=== PATIENT | female | born 1980 | race Caucasian/White ===

== ENCOUNTER 2016-03-16 12:54 | Inpatient (IN) | payer OTHER ==
[2016-03-21] VITALS (7 sets, daily range): BP systolic 128–154; BP diastolic 81–99; PULSE 82–110; RESP 18–20; TEMP 97.6–98.4; O2SAT 94–99
[2016-03-21] MEDS: LACTATED RINGER'S 1000 ML INJ 1,000 ML IV SCH (13:04)
[2016-03-21] MEDS ORDERED: OXYTOCIN 10 UNIT/ML AMP ONE (16:28)
[2016-03-21] MEDS ORDERED: ceFAZolin INJ 1,000 MG VIAL ONE (16:28)
[2016-03-21] MEDS ORDERED: LACTATED RINGER'S 1000 ML IV ONE (16:30)
[2016-03-21] MEDS ORDERED: CITRIC ACID-SODIUM CITRATE LIQ 30 ML UDC PO SCH (16:30)
[2016-03-21 16:38] LABS: AUTOMATED NEUTROPHIL # 5.9 TH/MM3 (1.8-7.7); BASOPHIL # 0.1 TH/MM3 (0-0.2); BASOPHIL % 1.4 % (0.0-2.0); EOSINOPHIL # 0.1 TH/MM3 (0-0.4); EOSINOPHIL % 0.6 % (0.0-4.0); HEMATOCRIT 34.9 % (35.0-46.0); HEMO FLAGS DIFF FINAL; LYMPH % 23.8 % (9.0-44.0); LYMPHOCYTE # 2.2 TH/MM3 (1.0-4.8); MEAN CELL VOLUME 78.5 FL (80.0-100.0); MEAN CORPUSCULAR HEMOGLOBIN 26.3 PG (27.0-34.0); MEAN CORPUSCULAR HGB CONC 33.5 % (32.0-36.0); MONO % 8.6 % (0.0-8.0); NEUT % 65.6 % (16.0-70.0); PLATELET COUNT 201 TH/MM3 (150-450); RED BLOOD COUNT 4.44 MIL/MM3 (4.00-5.30); RED CELL DISTRIBUTION WIDTH 16.9 % (11.6-17.2); WHITE BLOOD COUNT 9.1 TH/MM3 (4.0-11.0)
[2016-03-21] MEDS ORDERED: EPIDURAL-DIPHENHYDRAMINE HCL 50 MG CAP PO PRN (16:45)
[2016-03-21] MEDS ORDERED: EPIDURAL-DO NOT ADMINISTER ANTICOAGULANTS XX PRN (16:45)
[2016-03-21] MEDS ORDERED: ceFAZolin 2 GM PREMIX 50 ML IV SCH (16:45)
[2016-03-21] MEDS ORDERED: EPIDURAL-NO SYSTEMIC NARCOTICS XX PRN (16:45)
[2016-03-21] MEDS ORDERED: EPIDURAL-NALOXONE HCL 0.4 MG/ML AMP IV PRN (16:45)
[2016-03-21] MEDS ORDERED: LACTATED RINGER'S 1000 ML IV SCH (17:00)
[2016-03-21 17:02] LABS: APTT (PATIENT) 25.2 SEC (24.3-30.1); INTERNATIONAL NORMALIZED RATIO 0.9 RATIO; PROTHROMBIN TIME - PATIENT 9.4 SEC (9.8-11.6)
[2016-03-21] MEDS ORDERED: ACETAMINOPHEN 1000 MG/100 ML VIAL IV ONE (17:57)
[2016-03-21] MEDS ORDERED: SODIUM CHLORIDE 0.9% FLUSH 5 ML FLUSH IV PRN (18:00)
[2016-03-21] MEDS ORDERED: MEASLES, MUMPS, RUBELLA VACCINE 0.5 ML VIAL SQ ONE (18:00)
[2016-03-21] MEDS ORDERED: OXYTOCIN 30 UNITS-500ML PREMIX 500 ML IV ONE (18:00)
[2016-03-21] MEDS: ONDANSETRON HCL 4 MG/2 ML VIAL IVP PRN (18:00)
[2016-03-21] MEDS ORDERED: PHENYLEPHRINE HCL 10 MG/ML VIAL IV ONE (18:00)
[2016-03-21] MEDS ORDERED: ZOLPIDEM TARTRATE 5 MG TAB PO PRN (18:00)
[2016-03-21] MEDS ORDERED: MORPHINE SULFATE PF 5 MG/10 ML VIAL ONE (18:02)
[2016-03-21] MEDS ORDERED: OXYTOCIN 30 UNITS-500ML PREMIX 500 ML IV PRN (18:15)
--- NOTE | 2016-03-21 18:19 | MH ---
cc: JUMA LI DATE OF ADMISSION 03/21/2016 ADMISSION DIAGNOSIS at 36-37 weeks with acute bleeding secondary to anterior placenta previa, advanced maternal age 35. HISTORY OF PRESENT ILLNESS The patient is a 35-year-old white female para 0 with an EDC of 04/15/16 by early ultrasound. Her labs were normal. First TM screen and panorama testing were normal. Her blood type was positive. The placenta previa was diagnosed in the mid trimester and continued as an anterior previa. She had episode of bleeding around Thanksgiving, was given steroid therapy and did well. She was at work today and about 03:30 p.m. had acute onset of right red blood per vagina with large clot and was brought in by [facility]. She is now admitted for immediate delivery. PAST MEDICAL HISTORY Previous surgery in 2013 appendectomy. MEDICATIONS Vitamins. ALLERGIES None TRANSFUSIONS None. SOCIAL HISTORY She is . She works at [employer]. Alcohol, tobacco and drugs are none. FAMILY HISTORY Noncontributory. PHYSICAL EXAMINATION GENERAL: A gravid white female. VITAL SIGNS: Stable. HEENT: Exam is normal. CHEST: Clear HEART: Regular rate. BREASTS: Enlarged with ABDOMEN: Gravid, nontender. PELVIC: Exam of the perineum reveals copious blood per vagina. ASSESSMENT As above PLAN She is now admitted for immediate section. I have explained the need for surgery which has been explained before and she understands. I also explained that should she have excessive bleeding postdelivery, she could require a hysterectomy. She would like to proceed. MD SYLWIA Hoskins/ /5:53 PM /6:04 PM
[2016-03-21] MEDS ORDERED: KETOROLAC TROMETHAMINE 30 MG/ML (IVP) VIAL ONE (18:23)
[2016-03-21] MEDS: KETOROLAC TROMETHAMINE 30 MG/ML (IVP) VIAL IV PUSH PRN (18:24)
[2016-03-21] MEDS ORDERED: OXYTOCIN 30 UNITS-500ML PREMIX 500 ML ONE (18:27)
[2016-03-22] VITALS: BP_SYST 154; BP_DIAS 98; BP_DIAS 99; PULSE 96; RESP 18; TEMP 98; O2SAT 96
[2016-03-22] MEDS: ONDANSETRON HCL 4 MG/2 ML VIAL IVP PRN (00:02)
[2016-03-22] MEDS: KETOROLAC TROMETHAMINE 30 MG/ML (IVP) VIAL IV PUSH PRN ×3 (00:03→13:39)
[2016-03-22] MEDS ORDERED: METOPROLOL TARTRATE 100 MG TAB PO SCH ×2 (01:00→09:00)
[2016-03-22] MEDS: EPIDURAL-DIPHENHYDRAMINE HCL 50 MG/ML VIAL IV PUSH PRN ×3 (01:10→08:14)
[2016-03-22] MEDS ORDERED: NIFEdipine 20 MG CAP PO ONE (02:00)
--- NOTE | 2016-03-22 02:16 | HHI.OB ---
Subjective Post Operative Day: 1 Remarks Asked to evaluate patient due to increased blood pressures: Patient is status post section due to possible previa, current blood pressure is 154/98, 154/99. Patient denies headaches, blurry vision, visual disturbances and epigastric pain. No signs and symptoms of preeclampsia at this time. Pain is well controlled, patient is sleeping comfortably, SCDs and both legs, Mast catheter in place. Objective Vitals/I&O Vital signs are stable, vital signs are reviewed Vital Signs Date Time Temp Pulse Resp B/P Pulse Ox O2 Delivery O2 Flow Rate FiO2 03/22/16 00:00 154/99 03/22/16 00:00 98.0 96 18 154/98 96 03/21/16 21:15 97.8 98 18 154/99 98 03/21/16 18:55 99 20 141/81 99 03/21/16 18:39 20 94 03/21/16 18:39 82 128/87 03/21/16 18:16 147/89 03/21/16 18:16 84 20 03/21/16 18:04 110 145/86 03/21/16 18:04 97.6 20 94 03/21/16 16:30 98.4 18 03/21/16 16:24 106 138/93 Result Diagram: 03/21/16 1610 Objective Remarks GENERAL: Well-nourished, well-developed patient. CARDIOVASCULAR: Regular rate and rhythm without murmurs, gallops, or rubs. RESPIRATORY: Breath sounds equal bilaterally. No accessory muscle use. ABDOMEN/GI: Abdomen soft, appropriately tender, bowel sounds present, no guarding, no rebound Incision: Clean, dry and intact, dressing in place Fundus: Firm, non-tender at umbilicus. GENITOURINARY: Light to moderate bleeding. Mast catheter in place EXTREMITIES: No cyanosis or edema, non-tender, SCDs in place, no signs of DVT. Medications and IVs Current Medications Medications (Trade) Dose Ordered Sig/Craig Route Start Time Stop Time Status Last Admin Lactated Ringer's 1,000 ml @ 150 mls/hr Q6H40M IV 03/21/16 17:00 (Lr 1000 ml Inj) 1,000 ml @ 100 mls/hr Q10H IV 03/21/16 13:04 03/22/16 09:03 03/21/16 13:04 (NS Flush) 2 ml BID IV 03/21/16 21:00 (NS Flush) 2 ml UNSCH PRN IV 03/21/16 18:00 (Mylicon Chew) 80 mg QID PRN PO 03/21/16 18:00 (Ofirmev Inj) 1,000 mg Q8H IV 03/22/16 02:00 03/22/16 10:01 (Motrin) 600 mg Q6H PRN PO 03/21/16 18:00 (Percocet 5-325 Mg) 1 tab Q4H PRN PO 03/21/16 18:00 Oxycodone/ Acetaminophen 2 tab 2 tab Q4H PRN PO 03/21/16 18:00 (Ancef Inj/NS Inj) 100 ml @ 200 mls/hr Q8H IV 03/22/16 00:00 03/22/16 08:29 03/22/16 00:02 (Diamond-Colace) 2 tab Q12H PRN PO 03/21/16 18:00 (Ambien) 5 mg HS PRN PO 03/21/16 18:00 (Boostrix Inj) 0.5 ml ONCE ONCE IM 03/23/16 09:00 03/23/16 09:01 (Zofran Inj) 4 mg Q6H PRN IVP 03/21/16 18:00 03/22/16 00:02 (Toradol Inj) 30 mg Q6HR PRN IV PUSH 03/21/16 18:00 03/24/16 17:00 03/22/16 00:03 Miscellaneous Information NO SYSTEMIC NARCOTICS TO BE GIVEN FO... UNSCH PRN XX 03/21/16 16:45 03/22/16 16:44 (Narcan Inj) 0.4 mg UNSCH PRN IV 03/21/16 16:45 03/22/16 16:44 (Benadryl Inj) 25 mg Q6H PRN IV PUSH 03/21/16 16:45 03/22/16 16:44 (Benadryl) 50 mg Q6H PRN PO 03/21/16 16:45 03/22/16 16:44 Miscellaneous Information ALL NURSING DEPARTMENTS UNSCH PRN XX 03/21/16 16:45 03/22/16 16:44 (Trandate) 300 mg Q12H PO 03/22/16 06:00 Assessment/Plan Assessment and Plan Post op day 1, status post cesareans delivery due to possible placenta previa, patient is hemodynamically stable. Patient with increased blood pressures, rule out preeclampsia. 1. Increased blood pressures/rule out preeclampsia. * Patient is currently asymptomatic, denies headache, blurry vision, epigastric pain. * Will treat blood pressure with labetalol 300 mg by mouth twice a day * We will continue to monitor blood pressures more frequently * Watch for signs and symptoms of preeclampsia * Will start magnesium sulfate for seizure prophylaxis and transferred to labor and delivery if patient is symptomatic * We'll send preeclamptic labs * Consider protein creatinine ratio 2. Status post delivery * Routine care * Pain management * Encourage incentive spirometer use * Encourage ambulation in the a.m. Discharge Planning 2- 3 days after delivery Héctor Choi MD Mar 22, 2016 02:16
[2016-03-22] MEDS: LACTATED RINGER'S 1000 ML INJ 1,000 ML IV SCH (02:40)
[2016-03-22] MEDS: SODIUM CHLORIDE 0.9% FLUSH 5 ML FLUSH IV SCH ×2 (02:40)
[2016-03-22] MEDS: ACETAMINOPHEN 1000 MG/100 ML VIAL IV SCH ×2 (02:40→09:24)
[2016-03-22 02:44] LABS: BASOPHIL # 0.1 TH/MM3 (0-0.2); BASOPHIL % 0.6 % (0.0-2.0); EOSINOPHIL % 0.1 % (0.0-4.0); HEMATOCRIT 30.6 % (35.0-46.0); HEMO FLAGS DIFF FINAL; LYMPH % 9.8 % (9.0-44.0); LYMPHOCYTE # 1.3 TH/MM3 (1.0-4.8); MEAN CELL VOLUME 79.3 FL (80.0-100.0); MEAN CORPUSCULAR HEMOGLOBIN 26.8 PG (27.0-34.0); MEAN CORPUSCULAR HGB CONC 33.8 % (32.0-36.0); MONO % 7.3 % (0.0-8.0); NEUT % 82.2 % (16.0-70.0); PLATELET COUNT 176 TH/MM3 (150-450); RED BLOOD COUNT 3.86 MIL/MM3 (4.00-5.30); RED CELL DISTRIBUTION WIDTH 16.9 % (11.6-17.2); WHITE BLOOD COUNT 13.3 TH/MM3 (4.0-11.0)
[2016-03-22 03:09] LABS: AMPHETAMINE, URINE NEG (NEG); BARBITURATES, URINE NEG (NEG); COCAINE, URINE NEG (NEG)
[2016-03-22 03:11] LABS: BLOOD, URINE TRACE (NEG); GLUCOSE,URINE 150 mg/dL (NEG); KETONE, URINE 40 mg/dL (NEG); MUCUS URINE MANY /lpf (OCC); NITRITE,URINE NEG (NEG); PH, URINE 6.5 (5.0-8.5); RENAL EPITHELIAL CELLS <1 /hpf; SQUAMOUS EPITHELIAL CELL URINE <1 /hpf (0-5); URINE COLOR YELLOW (YELLW/STRAW)
[2016-03-22 03:14] LABS: COMMENT (UR) CATH-CULT NOT IND; CULTURE IF INDICATED CATH CULTURE NOT IND
[2016-03-22 03:23] LABS: ALT (GPT) 12 U/L (10-53); ANION GAP 10 MEQ/L (5-15); AST (GOT) 12 U/L (15-37); BICARBONATE 23.3 MEQ/L (21.0-32.0); BLOOD UREA NITROGEN 12 MG/DL (7-18); CHLORIDE 105 MEQ/L (98-107); POTASSIUM 4.5 MEQ/L (3.5-5.1); SODIUM (NA) 138 MEQ/L (136-145); URIC ACID 3.4 MG/DL (2.6-6.0)
[2016-03-22 03:28] LABS: ALKALINE PHOSPHATASE 83 U/L (45-117); GLOMERULAR FILTRATION RATE 133 ML/MIN (>89); LDH SERUM 270 U/L (84-246); TOTAL BILIRUBIN ADULT 0.2 MG/DL (0.2-1.0)
[2016-03-22 04:00] VITALS: BP 143/92; PULSE 110; RESP 18; O2SAT 99
[2016-03-22 06:00] VITALS: BP 113/82; PULSE 95; RESP 18
[2016-03-22] MEDS: LABETALOL HCL 300 MG TAB PO SCH ×2 (06:03→18:03)
[2016-03-22] MEDS: oxyCODONE/ACETAMINOPHEN 5 MG/325 MG TAB PO PRN ×2 (17:37→21:38)
[2016-03-22] MEDS: SIMETHICONE 80 MG CHEWABLE TAB PO PRN (18:09)
[2016-03-22] MEDS: DOCUSATE SODIUM 50 MG/SENNA 8.6 MG TAB PO PRN (18:09)
[2016-03-22 20:00] VITALS: BP 133/75; PULSE 108; RESP 18; TEMP 98.7
[2016-03-22] MEDS: IBUPROFEN 600 MG TAB PO PRN (21:38)
[2016-03-23] MEDS: IBUPROFEN 600 MG TAB PO PRN ×3 (03:51→18:39)
[2016-03-23] MEDS: oxyCODONE/ACETAMINOPHEN 5 MG/325 MG TAB PO PRN ×5 (03:51→20:21)
[2016-03-23] MEDS: DOCUSATE SODIUM 50 MG/SENNA 8.6 MG TAB PO PRN ×2 (07:45→20:23)
[2016-03-23 08:00] VITALS: BP 108/72; PULSE 88; RESP 18; TEMP 98.4
[2016-03-23] MEDS ORDERED: DIPHTH/TETANUS/ACEL PERTUSSIS (BOOSTER) 0.5 ML VIAL/PFS IM ONE (09:00)
[2016-03-23] MEDS ORDERED: INFLUENZA VIRUS VACCINE (QUADRIVALENT) 0.5 ML SYR IM ONE (10:00)
[2016-03-23 16:00] VITALS: BP 112/77; PULSE 84; RESP 16; TEMP 98.8
[2016-03-23] MEDS: LABETALOL HCL 300 MG TAB PO SCH (18:39)
[2016-03-23] MEDS: SIMETHICONE 80 MG CHEWABLE TAB PO PRN (18:39)
[2016-03-24] MEDS: SIMETHICONE 80 MG CHEWABLE TAB PO PRN ×2 (00:23→06:14)
[2016-03-24] MEDS: IBUPROFEN 600 MG TAB PO PRN ×2 (00:23→08:17)
[2016-03-24] MEDS: oxyCODONE/ACETAMINOPHEN 5 MG/325 MG TAB PO PRN ×2 (00:23→04:40)
[2016-03-24 04:00] VITALS: BP 130/93; PULSE 106; RESP 18; TEMP 99.2
[2016-03-24] MEDS: LABETALOL HCL 300 MG TAB PO SCH (04:57)
[2016-03-24 08:00] VITALS: BP 117/79; PULSE 87; RESP 18; TEMP 98.1
--- NOTE | 2016-03-24 08:06 | HHI.DCPOC ---
Discharge Care Plan Diagnosis: (1) Placenta previa antepartum in second trimester (2) Delivered by section Report Symptoms to Your Doctor -Temperate above 100.5 degrees -Redness, of incision or excessive or foul smelling drainage -Unusual pain or calf pain -Increased vaginal bleeding -Painful or difficulty urinating -Feelings of extreme sadness or anxiety after 2 weeks Goals to Promote Your Health * To prevent worsening of your condition and complications * To maintain your health at the optimal level Directions to Meet Your Goals Take your medications as prescribed Follow your dietary instruction Follow activity as directed Ensure plenty of rest for recovery Drink fluids for hydration Keep your appointments as scheduled Take your immunizations and boosters as scheduled If your symptoms worsen call your PCP, if no PCP go to Urgent Care Center or Emergency Room Smoking is Dangerous to Your Health. Avoid second hand smoke Call the 24-hour crisis hotline for domestic abuse at Dipesh Abreu MD Mar 24, 2016 08:06
[2016-03-24] MEDS ORDERED: OXYC1TAB63 PO (08:07)
--- NOTE | 2016-03-24 08:08 | HHI.OB ---
Subjective Post Day: 2 Remarks doing well dc home Objective Vitals/I&O Vital Signs Date Time Temp Pulse Resp B/P Pulse Ox O2 Delivery O2 Flow Rate FiO2 03/24/16 04:00 106 18 130/93 03/24/16 04:00 99.2 03/23/16 16:00 98.8 84 16 112/77 Objective Remarks GENERAL: Well-nourished, well-developed patient. ABDOMEN/GI: Abdomen soft, non-tender. Fundus: Firm, non-tender at umbilicus. GENITOURINARY: Light to moderate bleeding. EXTREMITIES: No cyanosis or edema, non-tender, without signs of DVT. Medications and IVs Current Medications Medications (Trade) Dose Ordered Sig/Craig Route Start Time Stop Time Status Last Admin (Lr 1000 ml Inj) 1,000 ml @ 150 mls/hr Q6H40M IV 03/21/16 17:00 (NS Flush) 2 ml BID IV 03/21/16 21:00 03/22/16 02:40 (NS Flush) 2 ml UNSCH PRN IV 03/21/16 18:00 (Mylicon Chew) 80 mg QID PRN PO 03/21/16 18:00 03/24/16 06:14 (Motrin) 600 mg Q6H PRN PO 03/21/16 18:00 03/24/16 00:23 (Percocet 5-325 Mg) 1 tab Q4H PRN PO 03/21/16 18:00 03/24/16 04:40 (Percocet 5-325 Mg) 2 tab Q4H PRN PO 03/21/16 18:00 03/24/16 00:23 (Diamond-Colace) 2 tab Q12H PRN PO 03/21/16 18:00 03/23/16 20:23 (Ambien) 5 mg HS PRN PO 03/21/16 18:00 (Zofran Inj) 4 mg Q6H PRN IVP 03/21/16 18:00 03/22/16 00:02 (Toradol Inj) 30 mg Q6HR PRN IV PUSH 03/21/16 18:00 03/24/16 17:00 03/22/16 13:39 (Trandate) 300 mg Q12H PO 03/22/16 06:00 03/24/16 04:57 Assessment/Plan Assessment and Plan dc home in stable condition 1. Increased blood pressures/rule out preeclampsia. * Patient is currently asymptomatic, denies headache, blurry vision, epigastric pain. * Will treat blood pressure with labetalol 300 mg by mouth twice a day * We will continue to monitor blood pressures more frequently * Watch for signs and symptoms of preeclampsia * Will start magnesium sulfate for seizure prophylaxis and transferred to labor and delivery if patient is symptomatic * We'll send preeclamptic labs * Consider protein creatinine ratio 2. Status post delivery * Routine care * Pain management * Encourage incentive spirometer use * Encourage ambulation in the a.m. Discharge Planning dc today Dipesh Abreu MD Mar 24, 2016 08:08
[2016-03-24] MEDS ORDERED: LABE300T PO (08:09)
[2016-03-24] MEDS: DOCUSATE SODIUM 50 MG/SENNA 8.6 MG TAB PO PRN (08:17)
[2016-03-24] MEDS ORDERED: ONDANSETRON ODT 4 MG TAB PO ONE (09:45)
[2016-03-24 10:03] VITALS: RESP 18
--- NOTE | 2016-03-26 16:34 | MP ---
cc: JUMA LI M.D. DATE OF SURGERY: 03/21/2016 PREOPERATIVE DIAGNOSIS 1. at 36-37 weeks with acute bleeding secondary to known anterior placenta previa. 2. Advanced maternal age of 35. POSTOPERATIVE DIAGNOSIS 1. at 36-37 weeks with acute bleeding secondary to known anterior placenta previa. 2. Advanced maternal age of 35. 3. Delivered. PROCEDURE Emergency classical section. ANESTHESIA Spinal. SURGEON Juma Li MD CHIEF OF ANESTHESIOLOGY DEBBIE Adam ESTIMATED BLOOD LOSS EBL for the procedure 800 cc. FLUIDS 1.9 liters crystalloid. OBJECTIVE FINDINGS Following the induction of adequate spinal anesthesia, the patient was prepped and draped supine on the operating table in a left lateral tilt position in the usual sterile fashion with the bladder being drained by Mast catheterization. The abdomen was opened through a low transverse muscle-cutting incision using a knife to cut down from the skin to the fascia. The fascia was opened transversely. The rectus muscle was divided with the Bovie and the peritoneum opened sharply in the midline and extended bilaterally. With handheld retractors the uterus was opened in the midline, cutting carefully down to get above the placenta implantation site in the cavity. Membranes were ruptured. This allowed the feet to be grasped and gently delivered the baby with a footling breech extraction. The mouth was suctioned, cord clamped and cut. The baby was passed to the awaiting team, a viable vigorous male, Apgars 8 and 8, weight 6 pounds even. Cord blood was collected for typing. The placenta was manually removed. The uterine cavity was cleaned with laps. The uterus was exteriorized and the midline incision was closed in two layers with interrupted suture of 0 Vicryl in a [id number] fashion. Posterior inspection revealed the posterior uterus was intact and normal, tubes and ovaries normal. The uterus was placed in the peritoneal cavity. Irrigation was performed. No bleeding was evident. The operative site on the uterus was coated with Interceed. The peritoneum was then closed with a running stitch of 0 Vicryl corner to midline and tied. The rectus muscles were dusted with Brian and the fascia closed with a running stitch of #2 PDS corner to midline and tied. The subcu was irrigated and closed with a running 3-0 Vicryl and the skin with a running subcuticular 3-0 Monocryl. Dermabond was applied. All counts were correct and the patient was awake and taken to the recovery room in good condition. MD SYLWIA Hoskins/LINDA /5:56 PM /4:20 PM
[2016-03-27 09:44] LABS: BATH SALTS (MDPV) UR NEG (NEG); ECSTASY (MDMA) UR NEG (NEG); HEROIN (6-ACETYLMORPHINE) UR NEG (NEG); K2 SPICE UR NEG (NEG); OBMETHADONE UR NEG (NEG); OXYCODONE (PERCODAN) NEG (NEG); PHENCYCLIDINE URINE NEG (NEG)
== END 2016-03-24 10:07 | disposition home or self-care (01) | DRG 766 ==
LOC: H2EB 03-21 16:15 → H1EA 03-21 20:42
PROVIDERS: ADMIT Obstetrics & Gynecology; ATTEND Obstetrics & Gynecology
PROC: 10D00Z0 Extraction of Products of Conception, High, Open Approach (ICD-10-PCS; principal; 2016-03-21)
DX: O44.13 Complete placenta previa with hemorrhage, third trimester (principal); O32.8XX0 Maternal care for other malpresentation of fetus, not applicable or unspecified; O09.529 Supervision of elderly multigravida, unspecified trimester; Z37.0 Single live birth; Z3A.37 37 weeks gestation of pregnancy
CPT/HCPCS: 80053; 80307; 81001; 82248; 82570; 83615; 84156; 84550; 85025; 85610; 85730; 86850; 86900; 86901; 90715; C1765; G0481; J0131; J0690; J1200; J1885; J2274; J2370; J2405; J2590; J7120